=== PATIENT | female | born 1960 | race Caucasian/White ===

== ENCOUNTER 2021-09-23 06:23 | Emergency (ER) | payer BC ==
[~2021-09-23] VITALS: Ht 167.6 cm; Wt 91.6 kg
[2021-09-23] MEDS ORDERED: AMLODIPINE BESY10 MG PO (06:40)
[2021-09-23] MEDS ORDERED: TIZANIDINE HCL4 M2 PO (06:40)
[2021-09-23] MEDS ORDERED: PREGABALIN75 MG PO (06:40)
[2021-09-23] MEDS ORDERED: OMEPRAZOLE40 MG PO (06:40)
[2021-09-23] MEDS ORDERED: FARXIGA5 MG PO (06:41)
[2021-09-23] MEDS ORDERED: VITAMIN D21250 MCG PO (06:41)
[2021-09-23] MEDS ORDERED: LISINOPRIL-HCT1 EAC2 PO (06:42)
[2021-09-23] MEDS ORDERED: LEXAPRO20 MG PO (06:43)
[2021-09-23] MEDS ORDERED: HYDROXYZINE HCL10 M2 PO (06:43)
[2021-09-23] MEDS ORDERED: [UNRECOGNIZED DRUG - OTHER] RT. EYE (07:50)
[2021-09-23] MEDS ORDERED: OCUFLOX5 ML OPHTHALMIC (07:50)
[2021-09-23] MEDS ORDERED: IBUPROFEN 800800 MG PO (07:50)
[2021-09-23] MEDS ORDERED: CYCLOPENTOLATE RT. EYE (07:50)
[2021-09-23 08:01] VITALS: BP 141/70
== END 2021-09-23 09:01 | disposition home or self-care (01) ==
LOC: ER 06:23
DX: S05.01XA Injury of conjunctiva and corneal abrasion without foreign body, right eye, initial encounter (principal); H57.11 Ocular pain, right eye; J45.909 Unspecified asthma, uncomplicated; E78.00 Pure hypercholesterolemia, unspecified; F41.9 Anxiety disorder, unspecified; F32.9 Major depressive disorder, single episode, unspecified; Z98.51 Tubal ligation status; Z90.89 Acquired absence of other organs; Z90.49 Acquired absence of other specified parts of digestive tract; Z79.899 Other long term (current) drug therapy; Z88.2 Allergy status to sulfonamides; Z88.8 Allergy status to other drugs, medicaments and biological substances; X58.XXXA Exposure to other specified factors, initial encounter; Y93.89 Activity, other specified; Y92.89 Other specified places as the place of occurrence of the external cause; Y99.8 Other external cause status